=== PATIENT | male | born 1995 | race Caucasian/White ===

== ENCOUNTER 2022-05-11 19:12 | Emergency (ER) | payer SELFPAY ==
[2022-05-11] MEDS ORDERED: HYDROmorphone 1 MG/ML Syringe IM ONE (19:30)
== END 2022-05-11 20:13 | disposition home or self-care (01) ==
LOC: KA.ED 19:12
DX: S02.2XXA Fracture of nasal bones, initial encounter for closed fracture (principal); Z88.0 Allergy status to penicillin; Z91.09 Other allergy status, other than to drugs and biological substances; W22.09XA Striking against other stationary object, initial encounter; Y99.0 Civilian activity done for income or pay
CPT/HCPCS: 70160; 96372; 99283; 99283-25; J1170